=== PATIENT | female | born 1985 | race American Indian/Alaskan Native ===

== ENCOUNTER 2016-05-01 05:19 | Emergency (ER) | payer SELFPAY ==
--- NOTE | 2016-05-01 09:36 | Emergency Department Report ---
- General Chief Complaint: Upper Respiratory Infection Stated Complaint: COUGH/CONGESTION Time Seen by Provider: 05/01/16 09:29 Source: patient Mode of arrival: Ambulatory Limitations: No Limitations - History of Present Illness Initial Comments: Patient here for URI signs and symptoms, patient states 2 weeks ago had fever, myalgias, chills, productive cough. Patient states she has been coughing ever since. Patient denies any productive cough, or fever/chills. States the entire household has same symptoms. Patient denies chest pain, shortness of breath, nausea vomiting or abdominal pain. MD Complaint: fever, cough, nasal congestion -: week(s) Associated Symptoms: cough. denies: sore throat, chest pain, shortness of breath, abdominal pain, nausea, vomiting, diarrhea Treatments Prior to Arrival: none - Related Data Previous Rx's Medication Instructions Recorded Last Taken Type ALBUTEROL Inhaler [ProAir HFA 2 puff IH QID PRN #1 inhalation 05/01/16 Unknown Rx Inhaler] Azithromycin [Zithromax TAB] 250 mg PO QDAY #6 tablet 05/01/16 Unknown Rx methylPREDNISolone [Medrol Dose 10 mg PO QAM #1 pack 05/01/16 Unknown Rx Talon] Allergies Allergy/AdvReac Type Severity Reaction Status Date / Time No Known Allergies Allergy Unverified 05/01/16 05:24 ED Review of Systems ROS: Stated complaint: COUGH/CONGESTION Other details as noted in HPI Constitutional: denies: chills, fever Eyes: denies: eye pain, eye discharge, vision change ENT: denies: ear pain, throat pain Respiratory: cough. denies: shortness of breath, wheezing Gastrointestinal: denies: abdominal pain, nausea Skin: rash ED Past Medical Hx - Past Medical History Previous Medical History?: No - Surgical History Past Surgical History?: No - Medications Home Medications: Home Medications Medication Instructions Recorded Confirmed Last Taken Type ALBUTEROL Inhaler [ProAir HFA 2 puff IH QID PRN #1 inhalation 05/01/16 Unknown Rx Inhaler] Azithromycin [Zithromax TAB] 250 mg PO QDAY #6 tablet 05/01/16 Unknown Rx methylPREDNISolone [Medrol Dose 10 mg PO QAM #1 pack 05/01/16 Unknown Rx Talon] ED Physical Exam - General Limitations: No Limitations General appearance: alert, in no apparent distress - Head Head exam: Present: atraumatic, normocephalic - Eye Eye exam: Present: normal appearance - ENT ENT exam: Present: mucous membranes moist, normal external ear exam - Neck Neck exam: Present: normal inspection. Absent: meningismus, lymphadenopathy - Respiratory Respiratory exam: Present: normal lung sounds bilaterally. Absent: respiratory distress, wheezes, rales, chest wall tenderness, accessory muscle use, decreased breath sounds, prolonged expiratory - Cardiovascular Cardiovascular Exam: Present: regular rate. Absent: bradycardia, tachycardia - GI/Abdominal GI/Abdominal exam: Present: soft. Absent: distended, tenderness, guarding, rebound - Neurological Exam Neurological exam: Present: alert, oriented X3, abnormal gait. Absent: altered - Skin Skin exam: Present: warm, dry, intact, normal color ED Course Vital Signs 05/01/16 05/01/16 05:25 11:17 Temperature 98.9 F Pulse Rate 96 H 94 H Respiratory 18 20 Rate Blood Pressure 118/84 Blood Pressure 109/71 [Right] O2 Sat by Pulse 99 100 Oximetry Critical care attestation.: If time is entered above; I have spent that time in minutes in the direct care of this critically ill patient, excluding procedure time. ED Disposition Clinical Impression: Upper respiratory infection Disposition: DISCHARGED TO HOME OR SELFCARE Is pt being admited?: No Condition: Stable Instructions: Upper Respiratory Infection (ED) Prescriptions: ALBUTEROL Inhaler [ProAir HFA Inhaler] 2 puff IH QID PRN #1 inhalation PRN Reason: Shortness Of Breath Azithromycin [Zithromax TAB] 250 mg PO QDAY #6 tablet methylPREDNISolone [Medrol Dose Talon] 10 mg PO QAM #1 pack Referrals: PRIMARY CARE, [Primary Care Provider] - 3-5 Days Forms: Work/School Release Form(ED)
--- NOTE | 2016-05-01 10:47 | XRay Report ---
ROUTINE CHEST, TWO VIEWS: PA and lateral views demonstrate the heart and mediastinal contour to be of normal size and shape. The lungs are clear and fully expanded and the soft tissues and bony structures are normal. IMPRESSION: Normal study.
[2016-05-01 11:18] VITALS: BP 109/71
== END 2016-05-01 11:17 | disposition home or self-care (01) ==
LOC: ED 05:19
DX: J06.9 Acute upper respiratory infection, unspecified (principal)
CPT/HCPCS: 71020

== ENCOUNTER 2021-05-23 09:52 | Emergency (ER) | payer SELFPAY ==
[2021-05-23 09:55] VITALS: BP 128/98
[2021-05-23 11:39] LABS: Basophils % (Auto) 0.6 % (0.0-1.8); Eosinophils % (Auto) 0.4 % (0.0-4.3); Hematocrit 38.5 % (30.3-42.9); Hemoglobin 12.5 gm/dl (10.1-14.3); Lymphocytes # (Auto) 1.7 K/mm3 (1.2-5.4); Lymphocytes % (Auto) 35.7 % (13.4-35.0); Mean Corpuscular HGB Conc 33 % (30-34); Mean Corpuscular Volume 79 fl (79-97); Monocytes # (Auto) 0.5 K/mm3 (0.0-0.8); Monocytes % (Auto) 10.4 % (0.0-7.3); Platelet Count 213 K/mm3 (140-440); Red Blood Count 4.88 M/mm3 (3.65-5.03); Red Cell Distribution Width 15.6 % (13.2-15.2)
[2021-05-23 11:55] LABS: Blood Urea Nitrogen 8 mg/dL (7-17); Hemolysis Index 0
[2021-05-23 11:58] LABS: BUN/Creatinine Ratio 13
[2021-05-23] MEDS ORDERED: SODIUM CHLORIDE 0.9% 1000 ML 1,000 ML IV ONE (12:30)
--- NOTE | 2021-05-23 12:41 | Emergency Department Report ---
ED Female HPI - General Chief complaint: Vaginal Bleeding Stated complaint: vaginal bleeding with Time Seen by Provider: 05/23/21 12:29 Source: EMS Mode of arrival: Stretcher Limitations: No Limitations - History of Present Illness Initial comments: This is a 36-year-old at approximately 8 weeks gestation who presented today complaining of heavy vaginal bleeding that began today suddenly. Patient states that vaginal bleeding has gotten a bit light but started again since has been in the ED. Patient states that she has not had OB care for this . She denies any abdominal pain, nausea or vomiting, pelvic pain, dysuria, chest pain, shortness of breath or any other symptoms. MD Complaint: vaginal bleeding Are you Now?: Yes Associated Symptoms: vaginal bleeding. denies: abdominal pain, nausea/vomiting, headaches, dysuria, hematuria - Related Data Previous Rx's Medication Instructions Recorded Last Taken Type Albuterol Mdi (or & Nicu Only) 2 puff IH QID PRN #1 inhalation 05/01/16 Unknown Rx [ProAir HFA Inhaler] Azithromycin [Zithromax TAB] 250 mg PO QDAY #6 tablet 05/01/16 Unknown Rx methylPREDNISolone [Medrol Dose 10 mg PO QAM #1 pack 05/01/16 Unknown Rx Talon] Allergies Allergy/AdvReac Type Severity Reaction Status Date / Time No Known Allergies Allergy Verified 05/23/21 09:55 ED Review of Systems ROS: Stated complaint: vaginal bleeding with Other details as noted in HPI Comment: All other systems reviewed and negative ED Past Medical Hx - Past Medical History Previous Medical History?: No - Surgical History Past Surgical History?: No - Medications Home Medications: Home Medications Medication Instructions Recorded Confirmed Last Taken Type Albuterol Mdi (or & Nicu Only) 2 puff IH QID PRN #1 inhalation 05/01/16 Unknown Rx [ProAir HFA Inhaler] Azithromycin [Zithromax TAB] 250 mg PO QDAY #6 tablet 05/01/16 Unknown Rx methylPREDNISolone [Medrol Dose 10 mg PO QAM #1 pack 05/01/16 Unknown Rx Talon] ED Physical Exam - General Limitations: No Limitations General appearance: alert, in no apparent distress - Head Head exam: Present: atraumatic, normocephalic - Eye Eye exam: Present: normal appearance - ENT ENT exam: Present: mucous membranes moist - Neck Neck exam: Present: normal inspection - Respiratory Respiratory exam: Present: normal lung sounds bilaterally. Absent: respiratory distress, wheezes - Cardiovascular Cardiovascular Exam: Present: regular rate, normal rhythm. Absent: systolic murmur, diastolic murmur, rubs, gallop - GI/Abdominal GI/Abdominal exam: Present: soft, normal bowel sounds. Absent: tenderness, guarding, rebound - Extremities Exam Extremities exam: Present: normal inspection - Back Exam Back exam: Present: normal inspection - Neurological Exam Neurological exam: Present: alert, oriented X3 - Psychiatric Psychiatric exam: Present: normal affect, normal mood - Skin Skin exam: Present: warm, dry, intact, normal color. Absent: rash ED Course Vital Signs 05/23/21 05/23/21 05/23/21 09:54 16:12 16:15 Temperature 97.9 F 97.7 F Pulse Rate 98 H Respiratory 16 Rate Blood Pressure 128/98 [Right] O2 Sat by Pulse 98 99 Oximetry - Reevaluation(s) Reevaluation #1: IV fluids ordered. Patient is stable in no acute distress. Ultrasound pending. Urinalysis pending. 05/23/21 12:41 ED Medical Decision Making - Lab Data Result diagrams: 05/23/21 11:14 05/23/21 11:14 - Radiology Data Radiology results: report reviewed [facility]TRIME[facility] OBSTETRIC ULTRASOUND HISTORY: Vaginal bleeding for one day. 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 Beta hCG level 14,000 COMPARISON: None. TECHNIQUE: Routine transabdominal and transvaginal OB ultrasound performed. FINDINGS: The uterus is mildly enlarged measuring 10 x 6 x 6 cm. No uterine mass is appreciated. There are 2 cystic structures in the endometrial canal. In the lower endometrium. There is clearly a normal-appearing gestational sac containing a pole and yolk sac. [place]-rump length measures 6.7 mm which correlates with a 6 week 4 day . heart rate measures 120 bpm. Within the upper endometrial canal, there is a complex cystic structure measuring up to 2.2 cm containing echogenic material. This does not have the appearance of a normal intrauterine gestational sac. It is unclear if this represents an abnormal gestational sac or a subchorionic hemorrhage. Average diameter measures 2.2 cm which correlates with a 7 week 1 day gestational sac. There is echogenic material within this cystic lesion but no heart rate or yolk sac is identified. The right ovary measures 2.4 x 1.7 x 2.1 cm. The left ovary measures 1.7 x 1.3 x 1.5 cm. A 1.8 cm right ovarian cyst is identified. No pelvic fluid collection is appreciated. Additional findings: None. IMPRESSION There is at least one normal intrauterine dated at 6 weeks 6 days as described. There is a second complex cystic structure in the upper endometrial canal as described above. It is unclear if this represents a subchorionic hemorrhage with internal thrombus or an abnormal/nonviable gestational sac. Close interval follow-up is recommended. 1.8 cm right ovarian cyst. Signer Name: Paulo Mata Jr, MD Signed: 05/23/2021 2:06 PM Workstation Name: [id number] Transcribed By: JACKELYN Dictated By: PAULO MATA JR, MD Electronically Authenticated By: PAULO MATA JR, MD Signed Date/Time: 05/23/21 1404 - Medical Decision Making 36-year-old female presents to ED with threatened ED course: Pt received ultra sound, CBC, urinalysis, test and quantitative ED. Urinalysis negative All other labs within normal limits, quantitative elevated matching gestation age Ultrasound shows 1 single gestation at 6 weeks 4 days. See report above Vital signs normalized patient is in no acute distress. I discussed with the patient if follow-up with her [employer] [facility] [employer]PER[facility]. Patient states that she has an appointment in 3 days with [place] [facility] I discussed with patient need for repeat quant at follow-up appointment and a repeat ultrasound in about 1 to 2 weeks. I discussed all labs and ultrasound findings with the patient. I discussed with the patient that he if bleeding worsens or new symptoms develop to return to ED immediately Vaginal bleeding precautions discussed with patient - Differential Diagnosis Spontaneous miscarriage , vaginal bleeding , ectopic Critical care attestation.: If time is entered above; I have spent that time in minutes in the direct care of this critically ill patient, excluding procedure time. 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 Take all your medications as you've been prescribed. If you have any worsening symptoms or develop new symptoms please return to ED immediately. Referrals: PRIMARY CARE, [Primary Care Provider] - 3-5 Days [facility] [Provider Group] - 3-5 Days [facility] [Provider Group] - 3-5 Days Time of Disposition: 15:00
[2021-05-23 13:41] LABS: Bilirubin,Urine NEG (Negative); Blood,Urine MOD (Negative); Color,Urine Straw (Yellow); Protein,Urine <15 mg/dL mg/dL (Negative); Urobilinogen,Urine < 2.0 mg/dL (<2.0)
--- NOTE | 2021-05-23 14:10 | Ultrasound Report ---
FIRSTTRIMESTER OBSTETRIC ULTRASOUND HISTORY: Vaginal bleeding for one day. 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 Beta hCG level 14,000 COMPARISON: None. TECHNIQUE: Routine transabdominal and transvaginal OB ultrasound performed. FINDINGS: The uterus is mildly enlarged measuring 10 x 6 x 6 cm. No uterine mass is appreciated. There are 2 cystic structures in the endometrial canal. In the lower endometrium. There is clearly a normal-appearing gestational sac containing a pole and yolk sac. [place]-rump length measures 6 .7 mm which correlates with a 6 week 4 day . heart rate measures 120 bpm. Within the u pper endometrial canal, there is a complex cystic structure measuring up to 2.2 cm containing echogen ic material. This does not have the appearance of a normal intrauterine gestational sac. It is unclea r if this represents an abnormal gestational sac or a subchorionic hemorrhage. Average diameter measu res 2.2 cm which correlates with a 7 week 1 day gestational sac. There is echogenic material within t his cystic lesion but no heart rate or yolk sac is identified. The right ovary measures 2.4 x 1.7 x 2.1 cm. The left ovary measures 1.7 x 1.3 x 1.5 cm. A 1.8 cm rig ht ovarian cyst is identified. No pelvic fluid collection is appreciated. Additional findings: None. IMPRESSION There is at least one normal intrauterine dated at 6 weeks 6 days as described. There is a second complex cystic structure in the upper endometrial canal as described above. It is u nclear if this represents a subchorionic hemorrhage with internal thrombus or an abnormal/nonviable g estational sac. Close interval follow-up is recommended. 1.8 cm right ovarian cyst. Signer Name: Paulo Guillen Jr, MD Signed: 05/23/2021 2:06 PM Workstation Name: [id number]
== END 2021-05-23 18:44 | disposition home or self-care (01) ==
LOC: ED 09:52
DX: O20.0 Threatened abortion (principal); Z3A.08 8 weeks gestation of pregnancy
CPT/HCPCS: 36415; 76801; 76817; 80048; 81001; 84702; 85025; 86900; 86901; 96360; 99284; J7030

== ENCOUNTER 2021-06-08 11:13 | Outpatient (CLI) | payer OTHER ==
--- NOTE | 2021-06-08 16:28 | Ultrasound Report ---
FIRSTTRIMESTER OBSTETRIC ULTRASOUND ULTRASOUND OB TRANSVAGINAL HISTORY: Vaginal bleeding during , surrogate COMPARISON: 05/23/2021 TECHNIQUE: Routine transabdominal OB ultrasound performed. FINDINGS: The uterus measures 14 x 6 x 8 cm. There is at least one normal-appearing intrauterine gestational sac containing a pole measuring 22 mm which correlates with an 8 week 6 day . heart rate measures 179 bpm. Again seen, is an adjacent cystic structure in the endometrial canal measuring approximately 2.1 x 0. 9 x 0.9 cm. This cystic structure contains anechoic fluid on today's exam. No pole or internal complexity is seen. The cervix is closed measuring 5 cm in length. The right ovary measures 3.9 x 2.9 x 2.1 cm and contains a 2.1 cm cyst. The left ovary is unremarkabl e measuring 3.4 x 2.0 x 3.8 cm. No pelvic fluid collection. IMPRESSION 1. A viable single intrauterine is identified dated at 8 weeks 6 days as described. 2. There is an adjacent cystic structure again seen in the endometrial canal with no evidence for fet al pole or yolk sac. It appears slightly less complex when comparing to the previous exam. This has t he appearance of a resolving subchorionic hemorrhage on today's exam when comparing to the previous. Signer Name: Paulo Guillen Jr, MD Signed: 06/08/2021 4:23 PM Workstation Name: [id number]
== END 2021-06-08 11:14 | disposition home or self-care (01) ==
LOC: US 11:13
DX: O09.893 Supervision of other high risk pregnancies, third trimester (principal); O34.80 Maternal care for other abnormalities of pelvic organs, unspecified trimester; O30.009 Twin pregnancy, unspecified number of placenta and unspecified number of amniotic sacs, unspecified trimester; Z33.3 Pregnant state, gestational carrier; N83.201 Unspecified ovarian cyst, right side; Z3A.00 Weeks of gestation of pregnancy not specified
CPT/HCPCS: 76801; 76817; 76830

== ENCOUNTER 2021-06-20 09:25 | Outpatient (CLI) | payer OTHER ==
--- NOTE | 2021-06-20 10:49 | Ultrasound Report ---
FIRSTTRIMESTER OBSTETRIC ULTRASOUND HISTORY: z33.3, z34.9 COMPARISON: 06/08/2021 TECHNIQUE: Routine transvaginal OB ultrasound performed. FINDINGS: Uterus: Mildly enlarged measuring 12 x 8 x 7 cm. Gestational Sac: Well-defined oval shape and intrauterine in location. Yolk Sac: Normal in appearance. Fetus/Embryo: [place]-rump length of 4.17 cm, corresponding to an estimated gestational age of 11 weeks 0 days. Embryonic/ anatomy is too small for evaluation. Embryonic/ cardiac activity: 178bpm Placenta: Too small for evaluation. Amniotic fluid volume: Subjectively appropriate for gestational age. Ovaries: The right ovary measures 3.1 x 2.9 x 3.0 cm and contains 2 cysts measuring 1.7 cm and 1.9 cm . The left ovary is not visualized. Additional findings: Previously described subchorionic hemorrhage has decreased from 2.1 x 0.9 x 0.9 cm to 1.4 x 0.4 x 0 point cm. IMPRESSION Early live intrauterine . Improvement in the subchorionic hemorrhage as described. Right ovarian cysts as described. The left ovary is not visualized. Signer Name: Paulo Guillen Jr, MD Signed: 06/20/2021 10:42 AM Workstation Name: [id number]
== END 2021-06-20 09:26 | disposition home or self-care (01) ==
LOC: US 09:25
DX: O09.893 Supervision of other high risk pregnancies, third trimester (principal); O30.009 Twin pregnancy, unspecified number of placenta and unspecified number of amniotic sacs, unspecified trimester; Z3A.11 11 weeks gestation of pregnancy
CPT/HCPCS: 76817